=== PATIENT | female | born 1950 | race Caucasian/White ===

== ENCOUNTER → 2016-11-29 | Outpatient (CLI) | payer MEDICARE, OTHER ==
--- NOTE | 2016-11-29 15:44 | BD ---
EXAMINATION TYPE: MG DEXA axial skeleton. DATE OF EXAM: 11/29/2016 1:34 PM COMPARISON: NONE CLINICAL HISTORY: Height: 60.5 IN Weight: 187 LBS FRAX RISK QUESTIONS: Alcohol (3 or more units per day): NO Family History (Parent hip fracture): YES MOTHER Glucocorticoids (More than 3mos): NO (Ex: prednisone, prednisolone, methylprednisolone, dexamethasone, and hydrocortisone). History of Fracture in Adulthood: NO Secondary Osteoporosis: 1. Type 1 Diabetes: NO 2. Hyperthyroidism: NO 3. Menopause before 45: NO 4. Malnutrition: NO 5. Chronic liver disease: NO Rheumatoid Arthritis: NO Current Tobacco Use: NO RISK FACTORS HISTORY OF: Family History of Osteoporosis: YES MOTHER Active: YES Diet low in dairy products/other sources of calcium: YES Postmenopausal woman: AGE 49 Take estrogen and/or progesterone medications: NOT NOW How long: AGE 48 - 52 MEDICATIONS: Osteoporosis Medications: NOT NOW Which medication: Fosamax How Long: AGE 50 - 52 Additional Medications: CALCIUM, VIT D, PRAVASTATIN, PARAXETENE, WELLBUTRIN, EXAM MEASUREMENTS: Bone mineral densitometry was performed using the Qwiki System. Bone mineral density as measured about the Lumbar spine is: ----- L1-L4(G/cm2): 1.048 T Score Values are as follows: ----- L2: -1.4 ----- L3: -1.0 ----- L4: -0.9 ----- L1-L4: -1.1 Bone mineral density has: Decreased -1.8% since study of: 10/26/2010 Bone mineral density about the R hip (g/cm2): 0.703 Bone mineral density about the L hip (g/cm2): 0.731 T Score values are as follows: -----R Neck: -2.4 -----L Neck: -2.2 -----R Intertrochanter: -2.0 -----L Intertrochanter: -1.7 Bone mineral density has: Decreased -3.3% since study of: 10/26/2010 IMPRESSION: Osteopenia (T Score between -2.5 and -1 as noted by T score values There is slightly increased risk of fracture and the patient may be considered for treatment. Re-Screen 1-2 years.CURT HIPS AND LUMBAR SPINE MAJOR OSTEOPOROTIC FRACTURE RISK: 21.2% HIP FRACTURE: 2.5% NOTE: T-SCORE=SD OF THE YOUNG ADULT MEAN.
--- NOTE | 2016-12-01 08:21 | MM ---
Reason for exam: screening (asymptomatic). Last mammogram was performed 2 years and 2 months ago. History: Patient is postmenopausal, has history of other cancer at age 52, and had first child at age 35. Took estrogen for 3 years beginning at age 47. Physical Findings: A clinical breast exam by your physician is recommended on an annual basis and results should be correlated with mammographic findings. MG 3D Screening Mammo W/Cad Bilateral CC and MLO view(s) were taken. Prior study comparison: October 12, 2014, bilateral MG screening mammo w CAD. November 26, 2012, bilateral digital screening mammo w/CAD. November 23, 2011, bilateral digital screening mammo w/CAD. There are scattered fibroglandular densities. There is chronic nodularity in the left breast. No significant changes when compared with prior studies. ASSESSMENT: Negative, BI-RAD 1 RECOMMENDATION: Routine screening mammogram of both breasts in 1 year.
== END | disposition home or self-care (01) ==
LOC: RADMAMWWP 13:28
PROVIDERS: ATTEND Obstetrics & Gynecology
DX: Z12.31 Encounter for screening mammogram for malignant neoplasm of breast (principal); M85.80 Other specified disorders of bone density and structure, unspecified site; Z78.0 Asymptomatic menopausal state
CPT/HCPCS: 77080; 77063; G0202

== ENCOUNTER → 2018-03-26 | Outpatient (CLI) | payer MEDICARE, OTHER ==
--- NOTE | 2018-03-26 12:03 | CTL ---
EXAMINATION TYPE: CT Low Dose Lung DATE OF EXAM ORDERED: 03/26/2018 HISTORY: Personal history of tobacco use. Lung cancer screening CT DLP: [address] CTDI: 3.44 mGy Automated exposure control for dose reduction was used. SCREENING VISIT: Initial study COMPARISON: None TECHNIQUE: Low dose computed tomography scan was performed through the chest at 1 mm thick sections a nd reconstructed images in the coronal plane at [address] DIAGNOSTIC QUALITY: Limited, but interpretable FINDINGS: LUNG NODULES: None. LUNGS: COPD: Severity: None Fibrosis: Severity: Mild Focal linear scarring medial right middle lobe axial image 128 and near lingula on axial image 133. Lymph nodes: No greater than 1 cm adenopathy. Other findings: None BILATERAL PLEURAL SPACE: Effusion: None Calcification: None Thickening: None Pneumothorax: None HEART: Heart Size: Mildly enlarged Coronary calcification: Moderate LAD and left circumflex distribution Pericardial effusion: None OTHER FINDINGS: Upper abdomen: No suspicious findings seen. Bony thorax: Mild to moderate multilevel anterior spurring. Slight scoliotic curvature. Supraclavicular region: No suspicious findings seen. Other: Some pericardial recess fluid in the mediastinum is noted. IMPRESSION: No suspicious nodules or masses identified. FOLLOW UP CT CHEST RECOMMENDATION: Annual low-dose lung screening CT CT LUNG RAD: Lung-Rad 1 Negative
== END | disposition home or self-care (01) ==
LOC: RADCTMAIN 08:53
PROVIDERS: ATTEND Internal Medicine
DX: Z12.2 Encounter for screening for malignant neoplasm of respiratory organs (principal); Z87.891 Personal history of nicotine dependence

== ENCOUNTER → 2018-04-22 | Outpatient (CLI) | payer MEDICARE, OTHER ==
--- NOTE | 2018-04-23 13:22 | MM ---
Reason for exam: screening (asymptomatic). Last mammogram was performed 1 year and 5 months ago. History: Patient is postmenopausal, has history of other cancer at age 52, and had first child at age 35. Took estrogen for 3 years beginning at age 47. Physical Findings: A clinical breast exam by your physician is recommended on an annual basis and results should be correlated with mammographic findings. MG 3D Screening Mammo W/Cad Bilateral CC and MLO view(s) were taken. Prior study comparison: November 29, 2016, bilateral MG 3d screening mammo w/cad. October 12, 2014, bilateral MG screening mammo w CAD. There are scattered fibroglandular densities. There is chronic nodularity bilaterally. There is no discrete abnormality. ASSESSMENT: Benign, BI-RAD 2 RECOMMENDATION: Routine screening mammogram of both breasts in 1 year.
== END | disposition home or self-care (01) ==
LOC: RADMAMWWP 15:31
PROVIDERS: ATTEND Obstetrics & Gynecology
DX: Z12.31 Encounter for screening mammogram for malignant neoplasm of breast (principal)
CPT/HCPCS: 77063; 77067

== ENCOUNTER → 2018-09-05 | Outpatient (CLI) | payer MEDICARE, OTHER ==
--- NOTE | 2018-09-05 11:31 | XR ---
EXAMINATION TYPE: XR lumbosacral spine min 4V DATE OF EXAM: 09/05/2018 CLINICAL HISTORY: Low back pain down right leg. TECHNIQUE: Frontal, lateral, and oblique images of the lumbar spine are obtained. COMPARISON: None FINDINGS: There are 5 lumbar type vertebral bodies identified. The lumbar spine shows slight grade 1 anterolisthesis L4 on L5 without evidence of acute fracture or dislocation. Vertebral body heights and disk space heights are within normal limits. The oblique images appear within normal limits. F acet arthropathy lower lumbar spine is present. Mild spurring is present for reference anterior super ior right L3 level. The overlying soft tissue appears unremarkable. IMPRESSION: As above.
== END ==
LOC: RADXRMAIN 10:37
PROVIDERS: ATTEND Internal Medicine
DX: M43.16 Spondylolisthesis, lumbar region (principal)
CPT/HCPCS: 72110

== ENCOUNTER → 2019-05-13 | Outpatient (CLI) | payer MEDICARE, OTHER ==
--- NOTE | 2019-05-13 18:57 | BD ---
EXAMINATION TYPE: Axial Bone Density DATE OF EXAM: 05/13/2019 COMPARISON: 11/29/2016 CLINICAL HISTORY: Disorder of bone, post menopausal female Height: 60.5 IN Weight: 180 LBS FRAX RISK QUESTIONS: Family History (Parent hip fracture): YES MOTHER RISK FACTORS HISTORY OF: Family History of Osteoporosis: YES MOTHER Active: YES Diet low in dairy products/other sources of calcium: YES Postmenopausal woman: AGE 47 Take estrogen and/or progesterone medications: NOT NOW How long: TOOK ESTROGEN FOR 3 YEARS AGE 47-49 MEDICATIONS: Additional Medications: PRAVASTATIN, ADVIL, PAROXETINE, BUPROPION XL, TURMERIC, REFRESH, EXAM MEASUREMENTS: Bone mineral densitometry was performed using the [employer] System. Bone mineral density as measured about the Lumbar spine is: ----- L1-L4(G/cm2): 1.058 T Score Values are as follows: ----- L2: -1.6 ----- L3: -0.6 ----- L4: -1.1 ----- L1-L4: -1.0 Bone mineral density has: Increased 0.2% since study of: 11/29/2016 Bone mineral density about the R hip (g/cm2): 0.650 Bone mineral density about the L hip (g/cm2): 0.733 T Score values are as follows: -----R Neck: -2.8 -----L Neck: -2.2 -----R Total: -2.1 -----L Total: -1.7 Bone mineral density has: Decreased -5.8% since study of: 11/29/2016 IMPRESSION: Osteoporosis (T Score less than -2.5). There is increased fracture risk and therapy is usually indicated based on age. Re-Screen 1-2 years. NOTE: T-SCORE=SD OF THE YOUNG ADULT MEAN.
--- NOTE | 2019-05-14 11:13 | MM ---
Reason for exam: screening (asymptomatic). Last mammogram was performed 1 year and 1 month ago. History: Patient is postmenopausal, has history of other cancer at age 52, and had first child at age 35. Took estrogen for 3 years beginning at age 47. Physical Findings: A clinical breast exam by your physician is recommended on an annual basis and results should be correlated with mammographic findings. MG 3D Screening Mammo W/Cad Bilateral CC and MLO view(s) were taken. Prior study comparison: April 22, 2018, bilateral MG 3d screening mammo w/cad. November 29, 2016, bilateral MG 3d screening mammo w/cad. There are scattered fibroglandular densities. There is no discrete abnormality. No significant changes when compared with prior studies. ASSESSMENT: Negative, BI-RAD 1 RECOMMENDATION: Routine screening mammogram of both breasts in 1 year.
== END | disposition home or self-care (01) ==
LOC: RADMAMWWP 07:27
PROVIDERS: ATTEND Internal Medicine
DX: Z12.31 Encounter for screening mammogram for malignant neoplasm of breast (principal); M81.0 Age-related osteoporosis without current pathological fracture
CPT/HCPCS: 77063; 77067; 77080

== ENCOUNTER → 2019-05-21 | Outpatient (CLI) | payer MEDICARE, OTHER ==
--- NOTE | 2019-05-21 12:21 | CTL ---
EXAMINATION TYPE: CT Low Dose Lung DATE OF EXAM ORDERED: 05/21/2019 COMPARISON: 03/26/2018 HISTORY: . Low Dose CT Lung Screening CT DLP: [address] CTDI: 2.87 mGy IV CONTRAST USED: None. SCREENING VISIT: First visit COMPARISON: None. TECHNIQUE: Low dose computed tomography scan was performed through the chest at 1 millimeter thick se ctions and reconstructed images in the coronal plane at [address] DIAGNOSTIC QUALITY: Satisfactory FINDINGS: LUNG NODULES: Not presentLeft lung: no nodules identified.Right lung: no nodules identified. LUNGS: COPD: Severity: Mild Fibrosis: Severity:None Lymph nodes: None Other findings: None RIGHT PLEURAL SPACE: Effusion: None Calcification: None Thickening: None Pneumothorax: None LEFT PLEURAL SPACE: Effusion: None Calcification: None Thickening: None Pneumothorax: None HEART: Heart Size: Mildly enlarged Coronary calcification: Mild Pericardial effusion: None OTHER FINDINGS: Upper abdomen: No significant abnormality Bony thorax: Degenerative changes Supraclavicular region: No significant abnormalityOther: No significant abnormalityI IMPRESSION: Negative no suspicious nodule is seen. FOLLOW UP CT CHEST RECOMMENDATION: Follow-up screening in one year. Smoking cessation recommended. CT LUNG RAD: Category 1 negative
== END | disposition home or self-care (01) ==
LOC: RADCTMAIN 07:45
PROVIDERS: ATTEND Internal Medicine
DX: Z12.2 Encounter for screening for malignant neoplasm of respiratory organs (principal); Z87.891 Personal history of nicotine dependence

== ENCOUNTER → 2019-08-15 | Outpatient (CLI) | payer MEDICARE, OTHER ==
--- NOTE | 2019-08-15 10:47 | CT ---
EXAMINATION TYPE: CT brain wo con DATE OF EXAM: 08/15/2019 HISTORY: Vertigo. Dizziness for [address] DLP: 1090.4 mGycm. Automated Exposure Control for Dose Reduction was Utilized. TECHNIQUE: CT scan of the head is performed without contrast. COMPARISON: None. FINDINGS: There is no acute intracranial hemorrhage or midline shift identified. There is diffuse v entricular and sulcal prominence consistent with diffuse age-related cerebral atrophy. There is low- attenuation in the periventricular white matter consistent with chronic small vessel ischemic change. The globes are intact and the visualized sinuses are clear. No suspicious opacification of mastoi d air cells. IMPRESSION: No acute intracranial hemorrhage or midline shift. There is mild to moderate diffuse ag e-related cerebral atrophy and chronic small vessel ischemic change noted.
== END | disposition home or self-care (01) ==
LOC: RADCTMAIN 09:52
PROVIDERS: ATTEND Family Medicine
DX: G31.1 Senile degeneration of brain, not elsewhere classified (principal)
CPT/HCPCS: 70450

== ENCOUNTER → 2020-12-31 | Outpatient (CLI) | payer MEDICARE, OTHER ==
--- NOTE | 2021-01-04 10:47 | MM ---
Reason for exam: screening (asymptomatic). Last mammogram was performed 1 year and 8 months ago. History: Patient is postmenopausal, has history of other cancer at age 52, and had first child at age 35. Took estrogen for 3 years beginning at age 47. Physical Findings: A clinical breast exam by your physician is recommended on an annual basis and results should be correlated with mammographic findings. MG 3D Screening Mammo W/Cad Bilateral CC and MLO view(s) were taken. Prior study comparison: May 13, 2019, bilateral MG 3d screening mammo w/cad. April 22, 2018, bilateral MG 3d screening mammo w/cad. There are scattered fibroglandular densities. No significant changes when compared with prior studies. ASSESSMENT: Negative, BI-RAD 1 RECOMMENDATION: Routine screening mammogram of both breasts in 1 year.
== END ==
LOC: RADMAMWWP 14:49
PROVIDERS: ATTEND Family Medicine
DX: Z12.31 Encounter for screening mammogram for malignant neoplasm of breast (principal); Z78.0 Asymptomatic menopausal state
CPT/HCPCS: 77063; 77067

== ENCOUNTER → 2022-01-02 | Outpatient (CLI) | payer MEDICARE, OTHER ==
--- NOTE | 2022-01-03 09:56 | MM ---
Reason for exam: screening (asymptomatic). Last mammogram was performed 1 year ago. History: Patient is postmenopausal, has history of other cancer at age 52, and had first child at age 35. Took estrogen for 3 years beginning at age 47. Physical Findings: A clinical breast exam by your physician is recommended on an annual basis and results should be correlated with mammographic findings. MG 3D Screening Mammo W/Cad Bilateral CC and MLO view(s) were taken. Prior study comparison: December 31, 2020, bilateral MG 3d screening mammo w/cad. May 13, 2019, bilateral MG 3d screening mammo w/cad. There are scattered fibroglandular densities. Benign appearing bilateral calcifications. There is chronic nodularity in the right breast, stable. No significant changes when compared with prior studies. ASSESSMENT: Benign, BI-RAD 2 RECOMMENDATION: Routine screening mammogram of both breasts in 1 year.
== END | disposition home or self-care (01) ==
LOC: RADMAMWWP 09:20
PROVIDERS: ATTEND Family Medicine
DX: Z12.31 Encounter for screening mammogram for malignant neoplasm of breast (principal); Z78.0 Asymptomatic menopausal state
CPT/HCPCS: 77063; 77067

== ENCOUNTER 2022-01-05 07:14 | Day surgery (SDC) | payer MEDICARE, OTHER ==
[2022-01-03 12:14] VITALS: BMI 31.1
[2022-01-05] MEDS ORDERED: LACTATED RINGERS 1,000 ML IV SCH (07:26)
[2022-01-05 07:30] VITALS: RESP 16; TEMP 97.6
[2022-01-05] MEDS ORDERED: PROPOFOL 10 MG/ML 20 ML VIAL IV ONE (08:11)
--- NOTE | 2022-01-05 08:16 | P.GSHP ---
History of Present Illness H&P Date: 01/05/22 CHIEF COMPLAINT: Colon screen HISTORY OF PRESENT ILLNESS: The patient is a 71-year-old female who presents for colon screen. Lower endoscopy was offered for further evaluation and management. PAST MEDICAL HISTORY: Please see list. PAST SURGICAL HISTORY: Please see list. MEDICATIONS: Please see list. ALLERGIES: Please see list. SOCIAL HISTORY: No illicit drug use FAMILY HISTORY: No reports of Crohn disease or ulcerative colitis. REVIEW OF ORGAN SYSTEMS: CONSTITUTIONAL: No reports of fevers or chills. PHYSICAL EXAM: VITAL SIGNS: Stable GENERAL: Well-developed pleasant in no acute distress. HEENT: No scleral icterus. Extraocular movements grossly intact. Moist buccal mucosa. NECK: Supple without lymphadenopathy. CHEST: Unlabored respirations. Equal bilateral excursions. CARDIOVASCULAR: Regular rate and rhythm. Distal 2+ pulses. ABDOMEN: Soft, nontender, nondistended. MUSCULOSKELETAL: No clubbing, cyanosis, or edema. ASSESSMENT: 1. Colon screen. PLAN: 1. Recommend proceeding with a lower endoscopy Past Medical History Past Medical History: Cancer, Hyperlipidemia Additional Past Medical History / Comment(s): HX SKIN CA ON NOSE-2013 History of Any Multi-Drug Resistant Organisms: None Reported Past Surgical History: Adenoidectomy, Orthopedic Surgery, Tonsillectomy Additional Past Surgical History / Comment(s): HX SKIN CA ON NOSE-REMOVED SPRING 2013. LT BUNION AND HAMMERTOE SURGERY. BILAT CATARACTS REMOVED. LAPAROSCOPY. COLONOSCOPY. D & C X 2 Past Anesthesia/Blood Transfusion Reactions: No Reported Reaction Smoking Status: Former smoker - Past Family History Father Family Medical History: Deep Vein Thrombosis (DVT) Medications and Allergies Home Medications Medication Instructions Recorded Confirmed Type PARoxetine HCL 30 mg PO DAILY 08/26/14 01/05/22 History Pravastatin Sodium [Pravachol] 80 mg PO HS 08/26/14 01/05/22 History buPROPion HCL [Wellbutrin XL] 450 mg PO DAILY 08/26/14 01/05/22 History Calcium Carbonate/Vitamin D3 1 each PO DAILY 01/03/22 01/05/22 History [Calcium 600 mg-D3 10 Mcg (400 Iu)] Cholecalciferol [Vitamin D3 (25 50 mcg PO DAILY 01/03/22 01/05/22 History Mcg = 1000 Iu)] Collagen Powder 1 dose PO DAILY 01/03/22 01/05/22 History Allergies Allergy/AdvReac Type Severity Reaction Status Date / Time No Known Allergies Allergy Verified 01/05/22 07:27 Surgical - Exam Vital Signs Temp Pulse Resp BP Pulse Ox 97.6 F 80 16 138/85 94 L 01/05/22 07:28 01/05/22 07:28 01/05/22 07:28 01/05/22 07:28 01/05/22 07:28
[2022-01-05 08:57] VITALS: BP 137/71; PULSE 60
--- NOTE | 2022-01-05 23:02 | P.PCN ---
Date of Procedure: 01/05/22 Description of Procedure: PREOPERATIVE DIAGNOSIS: Personal history colon polyps Colonoscopy screening. POSTOPERATIVE DIAGNOSIS: Colonoscopy screening. Diverticulosis, sigmoid colon OPERATION: Colonoscopy to the cecum, ileocecal valve and appendiceal orifice. SURGEON: Alma Call MD. ANESTHESIA: MAC. INDICATIONS: The patient is a 71-year-old female who presents for colonoscopy screening. Last over 5 years ago. Benefits and risks were described and informed consent was obtained. DESCRIPTION OF PROCEDURE: The patient had undergone Sutab prep. The patient had been brought into the operating room and laid in the left lateral decubitus position. After adequate intravenous sedation, the rectum was examined with 2% lidocaine jelly. No external hemorrhoids were encountered. The rectal tone was within normal limits. No lesions were palpated in the rectal vault. An Olympus colonoscope was advanced until the cecum, ileocecal valve and appendiceal orifice were clearly viewed. The prep was good. Sigmoid diverticulosis was found. No colonic polyps were found. No evidence of focal colitis was found. Retroflexion of the scope demonstrated grade 1 internal hemorrhoids without active bleeding or inflammation. The colon was desufflated. The patient had tolerated the procedure well. Withdrawal time was over 6 minutes. FINDINGS: Aronchick preparation quality scale 2 (1-5) Internal hemorrhoids, grade 1 No external prolapsed hemorrhoids. No arteriovenous malformations. No adenomatous polyps. No focal colitis. Sigmoid diverticulosis RECOMMENDATIONS: Lower endoscopy in 5 years, 2026 Plan - Discharge Summary Discharge Rx Participant: No New Discharge Prescriptions: Continue buPROPion HCL [Wellbutrin XL] 450 mg PO DAILY PARoxetine HCL 30 mg PO DAILY Pravastatin Sodium [Pravachol] 80 mg PO HS Cholecalciferol [Vitamin D3 (25 Mcg = 1000 Iu)] 50 mcg PO DAILY Collagen Powder 1 dose PO DAILY Calcium Carbonate/Vitamin D3 [Calcium 600 mg-D3 10 Mcg (400 Iu)] 1 each PO DAILY Discharge Medication List PARoxetine HCL 30 mg PO DAILY 08/26/14 [History] Pravastatin Sodium [Pravachol] 80 mg PO HS 08/26/14 [History] buPROPion HCL [Wellbutrin XL] 450 mg PO DAILY 08/26/14 [History] Calcium Carbonate/Vitamin D3 [Calcium 600 mg-D3 10 Mcg (400 Iu)] 1 each PO DAILY 01/03/22 [History] Cholecalciferol [Vitamin D3 (25 Mcg = 1000 Iu)] 50 mcg PO DAILY 01/03/22 [History] Collagen Powder 1 dose PO DAILY 01/03/22 [History] Follow up Appointment(s)/Referral(s): Alma Call MD [STAFF PHYSICIAN] - As Needed Patient Instructions/Handouts: *Surgery [facility] - (Anesthesia) Endoscopy Discharge Instructions, Diverticulosis (DC), Advance Directives (DC), Diverticulosis Diet (GEN), Colonoscopy (GEN) Activity/Diet/Wound Care/Special Instructions: Repeat colonoscopy in 5 years, 2026 Discharge Disposition: HOME SELF-CARE
== END 2022-01-05 09:14 | disposition home or self-care (01) ==
LOC: ORWHC2ENDO 07:14
PROVIDERS: ATTEND Surgery Plastic and Reconstructive Surgery
DX: Z12.11 Encounter for screening for malignant neoplasm of colon (principal); K57.30 Diverticulosis of large intestine without perforation or abscess without bleeding; K64.0 First degree hemorrhoids; Z86.010 Personal history of colon polyps; E78.5 Hyperlipidemia, unspecified; Z85.828 Personal history of other malignant neoplasm of skin; Z87.891 Personal history of nicotine dependence; Z79.899 Other long term (current) drug therapy; Z90.89 Acquired absence of other organs; Z98.890 Other specified postprocedural states; Z98.42 Cataract extraction status, left eye; Z98.41 Cataract extraction status, right eye; Z82.49 Family history of ischemic heart disease and other diseases of the circulatory system
CPT/HCPCS: J2704; G0121

== ENCOUNTER → 2023-01-10 | Outpatient (CLI) | payer MEDICARE, OTHER ==
--- NOTE | 2023-01-10 10:31 | MM ---
Reason for Exam: Screening (asymptomatic). Last screening mammogram was performed 12 month(s) ago. Patient History: Menarche at age 11. First Full-Term at age 35. Late child-bearing (after 30). Postmenopausal. Other cancer, age 52. Estrogen for 3 years from age 47 until age 50. Risk Values: Karen 5 year model risk: 2.6%. NCI Lifetime model risk: 7.2%. Prior Study Comparison: 11/29/2016 Bilateral Screening Mammogram, [facility]. 04/22/2018 Bilateral Screening Mammogram, [facility]. 05/13/2019 Bilateral Screening Mammogram, [facility]. 12/31/2020 Bilateral Screening Mammogram, [facility]. 01/02/2022 Bilateral Screening Mammogram, [facility]. Tissue Density: There are scattered fibroglandular densities. Analyzed By CAD. Overall Assessment: Benign, BI-RAD 2 Management: Screening Mammogram of both breasts in 1 year. Electronically signed and approved by: Praveen Velarde M.D.
== END | disposition home or self-care (01) ==
LOC: RADMAMWWP 07:57
PROVIDERS: ATTEND Family Medicine
DX: Z12.31 Encounter for screening mammogram for malignant neoplasm of breast (principal); Z78.0 Asymptomatic menopausal state
CPT/HCPCS: 77063; 77067

== ENCOUNTER → 2023-11-06 | Outpatient (CLI) | payer MEDICARE, OTHER ==
--- NOTE | 2023-11-06 17:42 | P.SLEEP ---
History of Present Illness H&P Date: 11/06/23 This is a 73-year-old female patient who is coming in regarding obstructive sleep apnea. The patient has been diagnosed having obstructive sleep apnea based on a sleep study that was done at [facility] by Dr. Stock in June 2019. The patient since then has been utilizing an APAP machine pressures of 8/18 cm of water. The patient has been extremity compliant to CPAP machine. I checked the machine and the machine is functional. The patient has been utilizing the machine every night. Her usage of the machine for more than 4 hours is 23 out of 30 days and she has achieved on average of 4.8 hours of CPAP use per night. Her P 95th percentile pressure is at 14.3. Her AHI down to 3.0 and the patient is having minimal leaks in the order of 14 L/m. Her current Buckhorn score is at 7. Note that she reports her sleep quality to have improved while on CPAP therapy. Nevertheless, she has not seen any major improvement in her level of alertness during the day. She is going to bed at around 11 PM, waking up 7 AM in the morning. She is averaging around 7-8 hours of sleep. No snoring while on CPAP therapy at this point in time. She has chronic anxiety and depression and she is demented on a combination of bupropion and paroxetine. She does not fall asleep while driving her car. She does not take any naps during the day. She is committed and she wants to continue with his CPAP therapy at this point in time. No nighttime chest pain or shortness of breath. No heartburn. No other new complaints otherwise for now. She is using a full facemask. Review of Systems Constitutional: Reports daytime sleepiness, Reports fatigue Eyes: denies as per HPI, denies blurred vision, denies bulging eye, denies decreased vision, denies diplopia, denies discharge, denies dry eye, denies irritation, denies itching, denies pain, denies photophobia, denies loss of peripheral vision, denies loss of vision, denies tunnel vision/blind spots Ears: deny: decreased hearing, ear discharge, earache, tinnitus Ears, nose, mouth and throat: Reports as per HPI Breasts: absent: as per HPI, change in shape, gynecomastia, masses, nipple discharge, pain, skin changes, swelling Cardiovascular: Reports as per HPI Respiratory: Reports as per HPI, Reports sleep apnea, Reports snoring Gastrointestinal: Reports as per HPI Genitourinary: Reports as per HPI Menstruation: Reports as per HPI Musculoskeletal: Reports as per HPI Musculoskeletal: absent: ankle pain, ankle stiffness, ankle swelling, as per HPI, elbow pain, elbow stiffness, elbow swelling, foot pain, foot stiffness, foot swelling, hand pain, hand stiffness, hand swelling, hip pain, hip stiffness, hip swelling, knee pain, knee stiffness, knee swelling, shoulder pain, shoulder stiffness, shoulder swelling, wrist pain, wrist stiffness, wrist swelling Integumentary: Reports as per HPI Neurological: Reports as per HPI Psychiatric: Reports as per HPI Endocrine: Reports as per HPI Hematologic/Lymphatic: Reports as per HPI Allergic/Immunologic: Reports as per HPI Past Medical History Past Medical History: Cancer, Hyperlipidemia Additional Past Medical History / Comment(s): HX SKIN CA ON NOSE-2013 History of Any Multi-Drug Resistant Organisms: None Reported Additional Past Surgical History / Comment(s): HX SKIN CA ON NOSE-REMOVED SPRING 2013. LT BUNION AND HAMMERTOE SURGERY. BILAT CATARACTS REMOVED. LAPAROSCOPY. COLONOSCOPY Past Anesthesia/Blood Transfusion Reactions: No Reported Reaction Past Alcohol Use History: Occasional Past Drug Use History: None Reported - Past Family History Father Family Medical History: Deep Vein Thrombosis (DVT) Medications and Allergies Home Medications Medication Instructions Recorded Confirmed Type PARoxetine HCL 30 mg PO DAILY 08/26/14 01/05/22 History Pravastatin Sodium [Pravachol] 80 mg PO HS 08/26/14 01/05/22 History buPROPion HCL [Wellbutrin XL] 450 mg PO DAILY 08/26/14 01/05/22 History Calcium Carbonate/Vitamin D3 1 each PO DAILY 01/03/22 01/05/22 History [Calcium 600 mg-D3 10 Mcg (400 Iu)] Cholecalciferol [Vitamin D3 (25 50 mcg PO DAILY 01/03/22 01/05/22 History Mcg = 1000 Iu)] Collagen Powder 1 dose PO DAILY 01/03/22 01/05/22 History Allergies Allergy/AdvReac Type Severity Reaction Status Date / Time No Known Allergies Allergy Verified 01/05/22 07:27 Physical Exam BP is 180/83, pulse is 82, respirations 16, temperature 98.7 and BMI 33.2, Buckhorn score is at 7 and weight is 173 pounds The patient appeared well nourished and normally developed. Vital signs as documented. Head exam is unremarkable. No scleral icterus or corneal arcus noted. Neck is without jugular venous distension, thyromegaly, or carotid bruits. Carotid upstrokes are brisk bilaterally. Lungs are clear to auscultation and percussion. Cardiac exam reveals the PMI to be normally sized and situated. Rhythm is regular. First and second heart sounds normal. No murmurs, rubs or gallops. Abdominal exam reveals normal bowel sounds, no masses, no organomegaly and no aortic enlargement. Extremities are nonedematous and both femoral and pedal pulses are normal.Examination of the skin revealed no evidence of significant rashes, suspicious appearing nevi or other concerning lesions.Neurologically, the patient is awake and alert and the patient does not have any focal neurological deficit. Cranial nerves are essentially intact. Assessment and Plan Plan: Obstructive sleep apnea, managed with CPAP therapy and the patient is currently utilizing an APAP machine pressures of 8/80 cm of water. Treatment is successful and the patient is AHI is down to 3.0. Original polysomnography was done at [facility]. No documentation Chronic anxiety/depression maintained on a combination of paroxetine and bupropion Hyperlipidemia History of skin cancer involving the nose that was resected Plan For now the treatment is successful and will continue the same pressure settings The patient will be offered in Airfit F30 I fullface mask as an alternative to her current mask Encourage weight loss Compliancy data was checked and the numbers are adequate We'll try to achieve longer hours of CPAP use per night We'll continue to follow Sleep Note - Sleep Note Sleep Note: Temperature: Pulse Rate: Respiratory Rate: Blood Pressure: SpO2: Height: Weight: BMI: Neck Circumference:
== END ==
LOC: 3 N SLEEP 13:11
PROVIDERS: ATTEND Internal Medicine Critical Care Medicine
DX: G47.33 Obstructive sleep apnea (adult) (pediatric) (principal); F41.9 Anxiety disorder, unspecified; F32.A Depression, unspecified; E78.5 Hyperlipidemia, unspecified; Z85.828 Personal history of other malignant neoplasm of skin; Z99.89 Dependence on other enabling machines and devices; Z87.891 Personal history of nicotine dependence
CPT/HCPCS: 99211

== ENCOUNTER → 2024-03-18 | Outpatient (CLI) | payer MEDICARE, OTHER ==
--- NOTE | 2024-03-20 10:57 | MM ---
Reason for Exam: Screening (asymptomatic). Last mammogram was performed 1 year(s) and 2 month(s) ago. Patient History: Menarche at age 11. First Full-Term at age 35. Late child-bearing (after 30). Postmenopausal. Other cancer, age 52. Estrogen for 3 years from age 47 until age 50. Risk Values: Karen 5 year model risk: 2.7%. NCI Lifetime model risk: 6.9%. Prior Study Comparison: 12/31/2020 Bilateral Screening Mammogram, [facility]. 01/02/2022 Bilateral Screening Mammogram, [facility]. 01/10/2023 Bilateral MG 3D screening mammo w/cad, [facility]. Tissue Density: There are scattered areas of fibroglandular density. Findings: Analyzed By CAD. Right breast: There is no suspicious group of microcalcifications or new suspicious mass. Left breast: There is no suspicious group of microcalcifications or new suspicious mass. Overall Assessment: Negative, BI-RAD 1 Management: Screening Mammogram of both breasts in [address] [facility] will attempt to contact patient to return for supplemental views and ultrasound if indicated. Patient should continue monthly self-breast exams. A clinical breast exam by your physician is recommended on an annual basis. This exam should not preclude additional follow-up of suspicious palpable abnormalities. Note on Karen scores and lifetime risk: 1. A Karen score greater than 3% is considered moderate risk. If this is the case, consider specialist referral to assess eligibility for a risk reducing agent. 2. If overall lifetime risk for the development of breast cancer is 20% or higher, the patient may qualify for future screening with alternating mammogram and breast MRI. Electronically signed and approved by: Luan Cardenas DO
== END | disposition home or self-care (01) ==
LOC: RADMAMWWP 07:01
PROVIDERS: ATTEND Family Medicine
DX: Z12.31 Encounter for screening mammogram for malignant neoplasm of breast (principal); Z78.0 Asymptomatic menopausal state
CPT/HCPCS: 77063; 77067

== ENCOUNTER → 2024-04-07 | Outpatient (CLI) | payer MEDICARE, OTHER ==
--- NOTE | 2024-04-07 12:20 | CTL ---
EXAMINATION TYPE: CT Low Dose Lung DATE OF EXAM ORDERED: 04/07/2024 HISTORY: 73-year-old female Z87.891 personal hx tobacco use. Lung cancer screening. Former smoker wit h 38 pack-year history. CT DLP: 83.[address] CTDI: 2.6 mGy Automated exposure control for dose reduction was used. SCREENING VISIT: Annual follow-up, last exam 2018 COMPARISON: 05/21/2019 TECHNIQUE: Low dose computed tomography scan was performed through the chest at 1 mm thick sections a nd reconstructed images in multiple planes at 1 mm and [address] DIAGNOSTIC QUALITY: Satisfactory FINDINGS: Heart upper limits of normal in size. Scattered three-vessel coronary artery calcification. No perica rdial effusion. Borderline ectasia ascending aorta 3.5 cm. Mild atelectatic arch calcifications. Conventional arch ve ssel branching anatomy. No thoracic lymphadenopathy by CT size criteria. Patchy groundglass and interstitial changes in the lower lungs have increased in the interval. Mild d iffuse bronchial wall thickening. A couple 4 to 5 mm pulmonary nodules right upper lobe, axial image 57 and 66 remain unchanged. No new pulmonary nodules seen. Visualized upper abdomen shows no gross abnormal body. Bones: Accentuated mid to lower thoracic kyphosis with moderate degenerative disc disease. IMPRESSION: 1. LungRADS 2, benign. A couple right upper lobe pulmonary nodules remain stable. No new suspicious p ulmonary nodules. 2. Increasing interstitial and patchy groundglass change in the lower lungs. This may in part relate to low lung volumes and atelectasis. Interstitial pneumonitis such as DIP and NSIP are also considera tions. CT LUNG RAD AND CT CHEST RECOMMENDATION: Lung-Rad 2 Benign Appearance or Behavior: Continue annual sc reening with LDCT in 12 months. S Modifier (other clinically significant findings): None
== END | disposition home or self-care (01) ==
LOC: RADCTMAIN 11:13
PROVIDERS: ATTEND Family Medicine
DX: Z12.2 Encounter for screening for malignant neoplasm of respiratory organs (principal); R91.8 Other nonspecific abnormal finding of lung field; Z87.891 Personal history of nicotine dependence
CPT/HCPCS: 71271

== ENCOUNTER → 2024-05-06 | Outpatient (CLI) | payer MEDICARE, OTHER ==
[2024-05-06 13:23] VITALS: BP 170/81; PULSE 70; RESP 16; TEMP 98.1
--- NOTE | 2024-05-06 14:53 | P.PN ---
Progress Note - Text Progress Note Date: 05/06/24 73-year-old female patient who is being seen in follow-up in the sleep center regarding her obstructive sleep apnea. I evaluated this patient on 11/06/2023. Her original diagnosis was made in 2019 through [facility] and the patient was subsequently given an APAP machine pressures of 8/18 cm of water. During her last evaluation, I evaluated the patient CPAP unit. I offered an AirFit F30I fullface mask and the patient is coming to see me in a follow-up. He reports some improvement in her tolerability to CPAP therapy as the patient is liking her new masks. She has a better seal. Her current [place] score is at 5. Based on the compliance data collected over the past 30 days, the patient utilized the machine more than 4 hours 26 out of 30 days and her 95th percentile pressure is at 13.6. Leaks are in the order of 23 L/min and her AHI is down to 2. As such, treatment has been very successful. Her machine remains functional. She has a ResMed 10 CPAP unit. Sleep hygiene measures are adequate. No snoring while on CPAP therapy. No hypersomnia or sleepiness. He is going on a cruise and she is going to take her CPAP machine with her. She is also interested in reevaluation to assess the severity of sleep apnea and decide if ongoing treatment is needed. On few occasions where she has not used the machine, she has not seen any major while being off treatment. No recent weight gain. No new onset comorbidities. No other new complaints otherwise for now Medications include Paxil 10 mg p.o. daily, bupropion 450 mg p.o. daily and pravastatin 80 mg p.o. daily Review of system A 14 point review of system was done and is essentially negative other than 6 mentioned above. She is feeling fatigue. Not sleeping. Her current [place] score is at 5. Vitals The patient had a BP of 170/81 with a pulse of 70 respiration of 16 and temperature of 98 1. Weight is 173 with a body mass index of 33.2. Pulse ox 96% on room air oxygen. The patient appeared well nourished and normally developed. Vital signs as documented. Head exam is unremarkable. The patient is obese and the patient has significant crowding of posterior pharynx. Mallampati class IV. No scleral icterus or corneal arcus noted. Neck is without jugular venous distension, thyromegaly, or carotid bruits. Carotid upstrokes are brisk bilaterally. Lungs are clear to auscultation and percussion. Cardiac exam reveals the PMI to be normally sized and situated. Rhythm is regular. First and second heart sounds normal. No murmurs, rubs or gallops. Abdominal exam reveals normal bowel sounds, no masses, no organomegaly and no aortic enlargement. Extremities are nonedematous and both femoral and pedal pulses are normal. Examination of the skin revealed no evidence of significant rashes, suspicious appearing nevi or other concerning lesions. Neurologically, the patient is awake and alert and the patient does not have any focal neurological deficit. Cranial nerves are essentially intact. Assessment Obstructive sleep apnea, currently successfully treated with an APAP machine pressures of 8/18 cm of water. Unable to locate the original polysomnography. Will need a follow-up home sleep study to reevaluate the presence and severity of sleep apnea and decide if ongoing treatment is needed. Her treatment is successful for now the patient is adequately compliant while using an AirFit F30I fullface mask, small size Chronic anxiety/depression maintained on a combination of Paxil and bupropion Hyperlipidemia Skin cancer, resected Plan Continue the same treatment Do a home sleep study to evaluate the presence and severity of sleep apnea and decide if ongoing treatment is needed.
== END ==
LOC: 3 N SLEEP 13:10
PROVIDERS: ATTEND Internal Medicine Critical Care Medicine
DX: G47.33 Obstructive sleep apnea (adult) (pediatric) (principal); F41.9 Anxiety disorder, unspecified; F32.A Depression, unspecified; E78.5 Hyperlipidemia, unspecified; C44.90 Unspecified malignant neoplasm of skin, unspecified; Z98.890 Other specified postprocedural states; Z87.891 Personal history of nicotine dependence
CPT/HCPCS: 99212

== ENCOUNTER → 2024-05-12 | Outpatient (CLI) | payer MEDICARE, OTHER ==
--- NOTE | 2024-05-13 13:52 | P.PCN ---
Date of Procedure: 05/12/24 Operative Findings: Sleep study testing Date of service is 05/13/2024 Pertinent history This patient is known to have history of obstructive sleep apnea. The patient obstructive sleep apnea is currently treated with an APAP machine pressures of 8/18 cm of water. Unable to locate the original polysomnography. Will need a follow-up home sleep study to reevaluate the presence and severity of sleep apnea and decide if ongoing treatment is needed. Her treatment is successful for now the patient is adequately compliant while using an AirFit F30I fullface mask, small size Physical findings The patient has a body mass index of 33.2 with a weight of 173 pounds Technical description A [employer] system was used to complete this home sleep study. This is bathroom sleep study. Total recording duration was 7 hours and 29 minutes. The study started at 10:40 PM and ended at 6:09 AM. There was a total of 7 hours and 50 minutes of flow monitoring and 6 hours and 54 minutes of oxygen saturation monitoring. This was an adequate study Results Respiratory analysis showed a total of 106 obstructive apneas and 150s obstructive hypopneas. The resulting AHI was 48.8 consistent with severe obstructive sleep apnea Oxygenation analysis The patient encountered severe nocturnal oxygen desaturation. Minimum pulse ox was 73%. Average pulse ox during sleep was 90%. The patient spent approximately 1 hours and 57 minutes of sleep time below pulse ox of 89% Cardiac summary Average heart is was 64 minimum heart rate of 46 and a maximum heart rate of 95 Assessment Severe symptomatic [place] with an AHI of 48.8. Nocturnal oxygen desaturation related to her obstructive sleep apnea Obesity with a BMI of 33.2 Chronic anxiety/depression maintained on a combination of Paxil and bupropion Hyperlipidemia Skin cancer, resected Plan Suggest continuing CPAP therapy as the patient has considerable degree of obstructive sleep apnea. The patient has been successfully treated with an APAP machine pressures of 8/18 cm of water. Will continue treatment with the same pressure settings. Will continue to follow.
== END ==
LOC: 3 N SLEEP 11:05
PROVIDERS: ATTEND Internal Medicine Critical Care Medicine
DX: G47.33 Obstructive sleep apnea (adult) (pediatric) (principal); G47.36 Sleep related hypoventilation in conditions classified elsewhere; E66.9 Obesity, unspecified; E78.5 Hyperlipidemia, unspecified; F32.A Depression, unspecified; F41.9 Anxiety disorder, unspecified; C44.90 Unspecified malignant neoplasm of skin, unspecified; Z68.33 Body mass index [BMI] 33.0-33.9, adult; Z99.89 Dependence on other enabling machines and devices; Z87.891 Personal history of nicotine dependence

== ENCOUNTER → 2025-04-17 | Outpatient (CLI) | payer MEDICARE, OTHER ==
--- NOTE | 2025-04-17 08:44 | MM ---
Reason for Exam: Screening (asymptomatic). Last mammogram was performed 1 year(s) and 1 month(s) ago. Patient History: Menarche at age 11. First Full-Term at age 35. Late child-bearing (after 30). Postmenopausal. Estrogen for 3 years from age 47 until age 50. Risk Values: Karen 5 year model risk: 2.7%. NCI Lifetime model risk: 6.5%. Prior Study Comparison: 01/02/2022 Bilateral Screening Mammogram, [facility]. 01/10/2023 Bilateral MG 3D screening mammo w/cad, [facility]. 03/18/2024 Bilateral MG 3D screening mammo w/cad, [facility]. Tissue Density: There are scattered areas of fibroglandular density. Findings: Analyzed By CAD. Chronic nodularity on both sides. Unchanged global asymmetry upper outer quadrant left breast. There is no suspicious group of microcalcifications or new suspicious mass in either breast. Overall Assessment: Benign, BI-RAD 2 Management: Screening Mammogram of both breasts in 1 year. Patient should continue monthly self-breast exams. A clinical breast exam by your physician is recommended on an annual basis. This exam should not preclude additional follow-up of suspicious palpable abnormalities. Note on Karen scores and lifetime risk: 1. A Karen score greater than 3% is considered moderate risk. If this is the case, consider specialist referral to assess eligibility for a risk reducing agent. 2. If overall lifetime risk for the development of breast cancer is 20% or higher, the patient may qualify for future screening with alternating mammogram and breast MRI. [facility], , 04/17/2025 8:41 AM. Electronically signed and approved by: Juany Garcia M.D. Radiologist
== END | disposition home or self-care (01) ==
LOC: RADMAMWWP 08:23
PROVIDERS: ATTEND Family Medicine
DX: Z12.31 Encounter for screening mammogram for malignant neoplasm of breast (principal); R92.323 Mammographic fibroglandular density, bilateral breasts; Z78.0 Asymptomatic menopausal state
CPT/HCPCS: 77063; 77067